=== PATIENT | female | born 1965 | race Two or more races ===

== ENCOUNTER 2020-02-14 13:58 | Emergency (ER) | payer OTHER ==
[~2020-02-14] VITALS: Ht 172.7 cm; Wt 68.0 kg
[2020-02-14] MEDS ORDERED: TIROSINT25 MCG (14:13)
== END 2020-02-14 21:01 | disposition home or self-care (01) ==
LOC: ER 13:58
DX: K52.89 Other specified noninfective gastroenteritis and colitis (principal); E86.0 Dehydration

== ENCOUNTER 2020-06-20 10:49 | Emergency (ER) | payer OTHER ==
[~2020-06-20] VITALS: Ht 172.7 cm; Wt 68.0 kg
[~2020-06-20 10:49] MED LIST: TIROSINT25 MCG
[2020-06-20] MEDS ORDERED: TIROSINT50 MCG PO (11:23)
[2020-06-20] MEDS ORDERED: CONCERTA36 MG PO (11:26)
[2020-06-20] MEDS ORDERED: LAMICTAL25 MG PO (11:26)
[2020-06-20] MEDS ORDERED: LEXAPRO20 MG PO (11:27)
== END 2020-06-20 15:28 | disposition home or self-care (01) ==
LOC: ER 10:49
DX: R06.02 Shortness of breath (principal)